=== PATIENT | male | born 1960 | race Caucasian/White ===

== ENCOUNTER 2025-06-22 10:38 | Outpatient (AMB) | payer MEDICARE, MEDICAID, SELFPAY ==
--- NOTE | 2025-06-22 10:43 | A.OFFVIS_ITS ---
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 The patient states that his symptoms have gotten worse over the last year. He did undergo left knee arthroscopic surgery by another provider approximately 2 years ago. He got fairly good relief from that procedure. He has tried Tylenol and ibuprofen which gave him minimal relief. Most of his pain is along the medial aspect of his right knee. 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 He has failed the last 6 weeks of conservative treatment. Allergies bee pollen (BEE STINGS) Allergy (Unknown, Verified 06/22/25 10:49) ANAPHYLAXIS Sulfa (Sulfonamide Antibiotics) Allergy (Unknown, Verified 06/22/25 10:49) Hives sulfamethoxazole (From BACTRIM) Allergy (Unknown, Verified 06/22/25 10:49) RASH trimethoprim (From BACTRIM) Allergy (Unknown, Verified 06/22/25 10:49) RASH Medication List - Last Reconciled 06/22/25 by Gilbert Traylor MD No Known Home Meds Physical Exam Vital Signs: BMI result Body Mass Index 27.6 Const Other: Well-nourished well-developed very friendly male awake alert and oriented x3 in no acute distress Extrem Other: Bilateral lower extremity examination shows good capillary refill, no skin lesions noted, normal sensation light touch Right knee examination shows a minimal effusion, mild crepitus with range of motion, tenderness along his medial joint line, positive Payal's test, no instability Assessment & Plan Assessment & Plan (1) Tear of medial meniscus of right knee: Code(s): S83.241A - Other tear of medial meniscus, current injury, right knee, initial encounter Category: Medical Plan Mr. Quintana presents with right knee pain and mechanical symptoms due to early degenerative joint disease as well as possible medial meniscus tearing. Thus, I will send the patient for an MRI of his right knee for further evaluation. I will see him back once the MRI is completed to discuss the findings and treatment options. He will continue with his activity modifications in the meantime. Feel free to call me at any time should questions regarding his orthopedic management arise. Thank you very much for asking me to see this very friendly gentleman. I spent 20 minutes in reviewing the patient's records and imaging studies, seeing the patient and documenting in the medical record. Orders: Orders MR knee RT wo con 06/23/25 S83.241A - Other tear of medial meniscus, current injury, right knee, initial encounter Coding Level of Care Code New Pt Level 3 (70142) Complex EM visit Add On G2211 Diagnoses Tear of medial meniscus of right knee S83.241A
[2025-06-22 10:49] VITALS: BMI 27.6
--- OUTSIDE RECORDS SUMMARY | 2025-06-22 14:09 | XMS_ITS | Clinical Summary ---
Author Organization [address] [facility] Address [address] [place] [address] Phone Care Team Providers Care Bicycle Inspector Name Role Phone Denise Bales MD Primary Care Provider [phone] Social History Tobacco Use Types Packs/Day Years Used Date Smoking Tobacco: Never Assessed Sex and Gender Information Value Date Recorded Sex Assigned at Not on file Legal Sex Male 7:12 AM EST Gender Identity Not on file Sexual Orientation Not on file Plan of Treatment Health Maintenance Due Date Last Done Comments Pneumococcal Vaccine: 50+ Years (1 of 1 - PCV) 2011 Zoster Vaccines (1 of 2) 2011 DTaP,Tdap,and Td Vaccines (2 - Td or Tdap) 08/02/2018 08/02/2008 Cholesterol Screening (Lipid Panel) 08/19/2024 Colorectal Cancer Screening: Colonoscopy 08/19/2024 HIV Screening 08/19/2024 Hepatitis C Screening 08/19/2024 Medicare Annual Wellness Visit 08/19/2024 Social Influencers of Health Screening 08/19/2024 Depression Screening 10/07/2024 COVID-19 Vaccine ( season) 2025 Influenza Vaccine (#1) 2025 6, 07/28/2014, 06/29/2013, Additional history exists RSV Immunization Adult Patients (1 - 1-dose 75+ series) 2036 HIB Vaccines Aged Out No longer eligi ble based on patient's age to complete this topic HPV Vaccines Aged Out No longer eligi ble based on patient's age to complete this topic Hepatitis A Vaccines Aged Out No long er eligible based on patient's age to complete this topic Hepatitis B Vaccines Aged Out No long er eligible based on patient's age to complete this topic IPV Vaccines Aged Out No longer eligi ble based on patient's age to complete this topic MMR Vaccines Aged Out No longer eligi ble based on patient's age to complete this topic Meningococcal ACWY Vaccine Aged Out N o longer eligible based on patient's age to complete this topic Meningococcal B Vaccine Aged Out No l onger eligible based on patient's age to complete this topic RSV Immunization Patients Under 20 months Aged Out No longer eligible based on patient's age to complete this topic Varicella Vaccines Aged Out No longer eligible based on patient's age to complete this topic Insurance MEDICARE [facility] Care Teams Bicycle Inspector Relationship Specialty Start Date End Date Denise Bales MD [address] [place] [id number] PCP - General Internal Medicine 01/03/15
--- OUTSIDE RECORDS SUMMARY | 2025-06-22 14:09 | XMS_ITS | Encounter Summary ---
Author Organization [employer] Address [address] [place] [address] Care Team Providers Care Detail Drafter Name Role Phone Denise Bales MD Primary Care Provider [phone] Encounter Details Date Type Department Care Team (Late st Contact Info) Description 08/18/2024 Lab Requisition [facility] - Main Lab [address] [facility] [place] [address] Jb Godfrey MD [address] [place] [phone] Elevated prostate specific antigen (PSA) Social History Tobacco Use Types Packs/Day Years Used Date Smoking Tobacco: Never Assessed Sex and Gender Information Value Date Recorded Sex Assigned at Not on file Legal Sex Male 7:12 AM EST Gender Identity Not on file Sexual Orientation Not on file documented as of this encounter Plan of Treatment Not on file documented as of this encounter Procedures Procedure Name Priority Date/Time Associated Diagnosis Comments AP OUTSIDE CONSULT Routine 08/18/2024 Elevated prostate specific antigen (PSA) documented in this encounter Results * Anatomic pathology outside consult (08/18/2024) Final Diagnosis A. Prostate, Left Middle [place]: - Benign prostatic tissue. B. Prostate, Left Lateral [place]: - Benign prostatic tissue. C. Prostate, Left Middle Middle: - Benign prostatic tissue. D. Prostate, Left Lateral Middle: - Benign prostatic tissue. E. Prostate, Left Middle Base: - Benign prostatic tissue. F. Prostate, Left Lateral Base: - Benign prostatic tissue. G. Prostate, Right Middle [place]: - Prostatic adenocarcinoma, grade group 1 (Torey score 3+3=6). - Tumor continuously involves 35% of 1 of 1 tissue core. H. Prostate, Right Lateral [place]: - Prostatic adenocarcinoma, grade group 1 (Torey score 3+3=6). - Tumor continuously involves 55% of 1 of 1 tissue core. I. Prostate, Right Middle Middle: - Prostatic adenocarcinoma, grade group 1 ([place] score 3+3=6). - Tumor continuously involves 45% of overall tissue, present in 1 of 2 tissue cores. J. Prostate, Right Lateral Middle: - Prostatic adenocarcinoma, grade group 1 ([place] score 3+3=6). - Tumor continuously involves 15% of overall tissue, present in 1 of 2 tissue cores. K. Prostate, Right Middle Base: - Benign prostatic tissue. L. Prostate, Right Lateral Base: - Prostatic adenocarcinoma, grade group 1 ([place] score 3+3=6). - Tumor discontinuously involves 70% of 1 of 1 tissue core. M. Prostate, Right Transition Zone Lesion: - Prostatic adenocarcinoma, grade group 1 (M[place] score 3+3=6). - Tumor continuously involves 20% of overall tissue, present in 2 of 3 tissue cores. 08/24/2024 3:13 PM [facility] Clinical Information Elevated PSA PSA: 28.6 (07/30/24) R97.20 [id number] 08/24/2024 3:13 PM [facility] Gross Description A. Prostate, Left Middle [place]: Received, properly labeled, are two H and E stained slides and two unstained slides. B. Prostate, Left Lateral [place]: Received, properly labeled, are two H and E stained slides and two unstained slides. C. Prostate, Left Middle Middle: Received, properly labeled, are two H and E stained slides and two unstained slides. D. Prostate, Left Lateral Middle: Received, properly labeled, are two H and E stained slides and two unstained slides. E. Prostate, Left Middle Base: Received, properly labeled, are two H and E stained slides and two unstained slides. F. Prostate, Left Lateral Base: Received, properly labeled, are two H and E stained slides and two unstained slides. G. Prostate, Right Middle [place]: Received, properly labeled, are two H and E stained slides and two unstained slides. H. Prostate, Right Lateral [place]: Received, properly labeled, are two H and E stained slides and two unstained slides. I. Prostate, Right Middle Middle: Received, properly labeled, are two H and E stained slides and two unstained slides. J. Prostate, Right Lateral Middle: Received, properly labeled, are two H and E stained slides and two unstained slides. K. Prostate, Right Middle Base: Received, properly labeled, are two H and E stained slides and two unstained slides. L. Prostate, Right Lateral Base: Received, properly labeled, are two H and E stained slides and two unstained slides. M. Prostate, Right Transition Zone Lesion: Received, properly labeled, are two H and E stained slides and two unstained slides. /al 08/24/2024 3:[address] [facility] Disclaimer Unless otherwise specified, all tissue is 10% NB formalin fixed and paraffin embedded. Technical pathology services provided by [facility] at [address] [place] [address] [address], [place] [address] (CLIA #[id number]/Sujey Reaves MD, Tight Barrel Inspector) 08/24/2024 3:[address] [facility] Tissue Prostate / Unknown 08/18/20242023 3:30 PM EST Tissue specimen (specimen) Prostate / Unknown 08/18/2024 08/18/2024 3: 30 PM EST Tissue specimen (specimen) Prostate / Unknown 08/18/2024 08/18/2024 3: 30 PM EST Tissue specimen (specimen) Prostate / Unknown 08/18/2024 08/18/2024 3: 30 PM EST Tissue specimen (specimen) Prostate / Unknown 08/18/2024 08/18/2024 3: 30 PM EST Tissue specimen (specimen) Prostate / Unknown 08/18/2024 08/18/2024 3: 30 PM EST Tissue specimen (specimen) Prostate / Unknown 08/18/2024 08/18/2024 3: 30 PM EST Tissue specimen (specimen) Prostate / Unknown 08/18/2024 08/18/2024 3: 30 PM EST Tissue specimen (specimen) Prostate / Unknown 08/18/2024 08/18/2024 3: 30 PM EST Tissue specimen (specimen) Prostate / Unknown 08/18/2024 08/18/2024 3: 30 PM EST Tissue specimen (specimen) Prostate / Unknown 08/18/2024 08/18/2024 3: 30 PM EST Tissue specimen (specimen) Prostate / Unknown 08/18/2024 08/18/2024 3: 30 PM EST Tissue specimen (specimen) Prostate / Unknown 08/18/2024 08/18/2024 3: 30 PM EST Jb Godfrey MD LAB PATHOLOGY ORDERABLES Final Result [facility] ([facility] [address] [place] [address], documented in this encounter Visit Diagnoses Diagnosis Elevated prostate specific antigen (PSA) documented in this encounter Care Teams Detail Drafter Relationship Specialty Start Date End Date Denise Bales MD [address] [place] [id number] PCP - General Internal Medicine 01/03/15 documented as of this encounter
== END 2025-06-22 11:10 | disposition home or self-care (01) ==
LOC: HO.HOS 10:39
PROVIDERS: Visit Provider Orthopaedic Surgery
DX: S83.241A Other tear of medial meniscus, current injury, right knee, initial encounter (principal)
CPT/HCPCS: 99203; G2211

== ENCOUNTER → 2025-06-22 10:38 | Outpatient (BNVA) | payer MEDICARE, MEDICAID, SELFPAY | PROVIDERS: Visit Provider Orthopaedic Surgery | DX: M25.561 Pain in right knee (principal); S83.241A Other tear of medial meniscus, current injury, right knee, initial encounter | CPT/HCPCS: 99202 ==

== ENCOUNTER 2025-07-05 16:06 | Outpatient (REF) | payer MEDICARE, MEDICAID, SELFPAY ==
--- NOTE | ~2025-07-05 | MR_ITS ---
EXAM: MRI LOWER EXTREMITY JOINT, KNEE, right TECHNIQUE: Multiplanar multisequence MR imaging performed through the right knee without contrast. INDICATION: S83.241A - Other tear of medial meniscus, current injury, right knee, in... PRIOR: None FINDINGS: Menisci: Lateral Meniscus: There is striation of the anterior meniscus near the root extending to the tibial surface that is not diagnostic of a tear. Medial Meniscus: The body is severely extruded from the joint line. It demonstrates increased signal. The posterior horn is frayed and irregular. ACL/PCL: ACL and PCL are intact. Extensor mechanism: There is a joint effusion. There is patchy edema in Hoffa's fat pad to the deep surface. MCL/LCL: MCL is bowed by extruded meniscal body. MCL is otherwise unremarkable. LCL complex is intact. Articular cartilage: Patellofemoral Compartment: Full thickness articular cartilage defect is noted in the median ridge and medial facet superiorly near junction with middle third patella. Trochlea demonstrates full-thickness fissure in the mid third region, trochlear groove, with adjacent reactive marrow signal. Lateral Compartment: There is full-thickness fissuring and delamination of a 9 mm segment of posterior tibial plateau articular cartilage near the intercondylar notch. Medial Compartment: There is a large area deep partial-thickness and full-thickness articular cartilage loss through the weightbearing regions of the medial femoral condyle with moderate to severe reactive marrow signal change. There is full-thickness articular cartilage loss along the medial joint line through the central and anterior portion of the joint surface measuring approximately 12 x 20 mm (transverse by AP). There is moderate reactive marrow signal in the adjacent tibia. Bones/Marrow: There is a subchondral insufficiency fracture involving the posterior weightbearing region of the medial femoral condyle near the joint line that measures 6 x 2 x 17 mm (transverse by CC by AP). There is moderate to severe marrow edema. Soft tissues: There is a multiloculated moderate-sized Valladares's cyst. MR/MR knee RT wo con IMPRESSION: There is a high-grade subchondral insufficiency fracture involving the medial femoral condyle. Severe degenerative change with cartilage loss most advanced along the medial femoral condyle. The medial meniscal body is completely extruded from the joint line. The body and posterior horn appears degenerated, frayed, and torn. There is a mildly complex joint effusion There is a multiloculated moderate-sized Valladares's cyst. Electronically signed by: Osmar Lind MD 07/05/2025 05:17 PM EDT RP
--- OUTSIDE RECORDS SUMMARY | 2025-07-05 18:10 | XMS_ITS | Clinical Summary ---
Author Organization [address] [facility] Address [address] [place] [address] Phone Care Team Providers Care Winter Intern Name Role Phone Denise Bales MD Primary Care Provider [phone] Social History Tobacco Use Types Packs/Day Years [...] age to complete this topic Insurance MEDICARE [facility] Care Teams Winter Intern Relationship Specialty Start Date End Date Denise Bales MD [address] [place] [phone] PCP - General Internal Medicine 01/03/15
--- OUTSIDE RECORDS SUMMARY | 2025-07-05 18:10 | XMS_ITS | Encounter Summary ---
Author Organization [facility] Address [address] [place] [address] Care Team Providers Care Pulp Tester Name Role Phone Denise Bales MD Primary Care Provider [phone] Encounter Details Date Type Department Care Team (Late st Contact Info) Description 08/18/[address] [facility] - Main Lab [address] [facility] [place] [address] Jb Godfrey MD [address] [place] [phone] Elevated prostate specific antigen (PSA) Social History [...] (08/18/2024) Final Diagnosis A. Prostate, Left Middle [place]: - Benign prostatic tissue. B. Prostate, Left Lateral [place]: - Benign prostatic tissue. C. Prostate, Left Middle Middle: - Benign prostatic tissue. D. Prostate, Left Lateral Middle: - Benign prostatic tissue. E. Prostate, Left Middle Base: - Benign prostatic tissue. F. Prostate, Left Lateral Base: - Benign prostatic tissue. G. Prostate, Right Middle [place]: - Prostatic adenocarcinoma, grade group 1 (Torey score 3+3=6). - Tumor continuously involves 35% of 1 of 1 tissue core. H. Prostate, Right Lateral [place]: - Prostatic adenocarcinoma, grade group 1 (Torey score 3+3=6). - Tumor continuously involves 55% of 1 of 1 tissue core. I. Prostate, Right Middle Middle: - Prostatic adenocarcinoma, grade group 1 ([place] score 3+3=6). - Tumor continuously involves 45% of overall tissue, present in 1 of 2 tissue cores. J. Prostate, Right Lateral Middle: - Prostatic adenocarcinoma, grade group 1 ([place] score 3+3=6). - Tumor continuously involves 15% of overall tissue, present in 1 of 2 tissue cores. K. Prostate, Right Middle Base: - Benign prostatic tissue. L. Prostate, Right Lateral Base: - Prostatic adenocarcinoma, grade group 1 ([place] score 3+3=6). - Tumor discontinuously involves 70% of 1 of 1 tissue core. M. Prostate, Right Transition Zone Lesion: - Prostatic adenocarcinoma, grade group 1 ([place] score 3+3=6). - Tumor continuously involves 20% of overall tissue, present in 2 of 3 tissue cores. 08/24/2024 3:13 PM [facility] Clinical Information Elevated PSA PSA: 28.6 (07/30/24) R97.20 [id number] 08/24/2024 3:13 PM [facility] Gross Description A. Prostate, Left Middle [place]: Received, properly labeled, are two H and E stained slides and two unstained slides. B. Prostate, Left Lateral [place]: Received, properly labeled, are two H and [...] two unstained slides. G. Prostate, Right Middle [place]: Received, properly labeled, are two H and E stained slides and two unstained slides. H. Prostate, Right Lateral [place]: Received, properly labeled, are two H and [...] unstained slides. /al 08/24/2024 3:13 PM EST [facility] Disclaimer Unless otherwise specified, all tissue is 10% NB formalin fixed and paraffin embedded. Technical pathology services provided by [facility] at [address] [place] [address] [address], [place] [address] (CLIA #[id number]/Sujey Reaves MD, Biometrics Technician) 08/24/2024 3:13 PM EST [facility] Tissue Prostate / Unknown 08/18/20242023 [...] specimen (specimen) Prostate / Unknown 08/18/2024 08/18/2024 3 :30 PM EST Tissue specimen (specimen) Prostate / Unknown 08/18/2024 08/18/2024 3: 30 PM EST Tissue specimen (specimen) Prostate / Unknown 08/18/2024 08/18/2024 3: 30 PM EST Jb Godfrey MD LAB PATHOLOGY ORDERABLES Final Result [facility] [address] [place] [address], documented in this encounter Visit Diagnoses Diagnosis Elevated prostate specific antigen (PSA) documented in this encounter Care Teams Pulp Tester Relationship Specialty Start Date End Date Denise Bales MD [address] [place] [phone] PCP - General Internal Medicine 01/03/15 documented as of this encounter
== END 2025-07-05 16:07 | disposition home or self-care (01) ==
LOC: HO.MRI 16:06
PROVIDERS: PCP Family Medicine; Visit Provider Orthopaedic Surgery
DX: S83.241A Other tear of medial meniscus, current injury, right knee, initial encounter (principal)
CPT/HCPCS: 73721

== ENCOUNTER → 2025-07-05 16:14 | Outpatient (BNV) | payer MEDICARE, MEDICAID, SELFPAY | PROVIDERS: PCP Family Medicine; Visit Provider Radiology Diagnostic Radiology | DX: S72.431A Displaced fracture of medial condyle of right femur, initial encounter for closed fracture (principal); M71.21 Synovial cyst of popliteal space [Baker], right knee; M94.261 Chondromalacia, right knee; M25.461 Effusion, right knee | CPT/HCPCS: 73721 ==

== ENCOUNTER 2025-07-06 12:38 | Outpatient (AMB) | payer MEDICARE, MEDICAID, SELFPAY ==
--- NOTE | 2025-07-06 12:42 | A.OFFVIS_ITS ---
Intake Visit Reasons: Right knee pain and giving way Intake Note: Luciano is a 64 year old male who presents today as a new patient for right knee pain. The patient states that his symptoms have gotten worse over the last year. He did undergo left knee arthroscopic surgery by another provider approximately 2 years ago. He got fairly good relief from that procedure. He has tried Tylenol and ibuprofen which gave him minimal relief. Most of his pain is along the medial aspect of his right knee. 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 He has failed the last 6 weeks of conservative treatment. Allergies bee pollen (BEE STINGS) Allergy (Unknown, Verified 06/22/25 10:49) ANAPHYLAXIS Sulfa (Sulfonamide Antibiotics) Allergy (Unknown, Verified 06/22/25 10:49) Hives sulfamethoxazole (From BACTRIM) Allergy (Unknown, Verified 06/22/25 10:49) RASH trimethoprim (From BACTRIM) Allergy (Unknown, Verified 06/22/25 10:49) RASH Medication List - Last Reconciled 07/06/25 by Gilbert Traylor MD No Known Home Meds Physical Exam Const Other: Well-nourished well-developed very friendly male awake alert and oriented x3 in no acute distress Extrem Other: Bilateral lower extremity examination shows good capillary refill, no skin lesions noted, normal sensation light touch Right knee examination shows a minimal effusion, mild crepitus with range of motion, tenderness along his medial joint line, positive Pyaal's test, no instability Results Reviewed Results Reviewed: Standing full weight-bearing x-rays of the patient's right knee show mild diffuse joint space narrowing, no acute bony abnormalities MRI of the patient's right knee shows mild diffuse degenerative changes as well as a tear of the medial meniscus Assessment & Plan Assessment & Plan (1) Tear of medial meniscus of right knee: Code(s): S83.241A - Other tear of medial meniscus, current injury, right knee, initial encounter Category: Medical Plan Mr. Quintana presents with progressively worsening right knee pain and mechanical symptoms due to a medial meniscus tear. I had a lengthy discussion with the patient regarding the treatment options. At this point he has failed continued non operative treatments. The risks and benefits of right knee arthroscopic surgery were discussed at length with the patient. The patient wishes to proceed with surgery. Surgery will involve right knee arthroscopic partial medial meniscectomy. He does understand that he may not get 100% relief of his symptoms depending on the severity of his degenerative changes. The patient will be scheduled for next available date. He will follow-up as instructed. Feel free to call me at any time should questions regarding his orthopedic management arise. I spent 21 minutes in reviewing the patient's records and imaging studies, seeing the patient and documenting in the medical record. Coding Level of Care Code Est Pt Level 3 (40136) Complex EM visit Add On G2211 Diagnoses Tear of medial meniscus of right knee S83.241A
--- OUTSIDE RECORDS SUMMARY | 2025-07-06 13:48 | XMS_ITS | Encounter Summary ---
Author Organization [employer] Address [address] [place] [address] Care Team Providers Care Needle Loom Tender Name Role Phone Denise Bales MD Primary Care Provider [phone] Encounter Details Date Type Department Care Team (Late st Contact Info) Description 08/18/2024 Lab Requisition [facility] - Main Lab [address] [facility] [place] [address] Jb Godfrey MD [address] [place] [id number] Elevated prostate specific antigen (PSA) Social History [...] (08/18/2024) Final Diagnosis A. Prostate, Left Middle [place]: - Benign prostatic tissue. B. Prostate, Left Lateral [place]: - Benign prostatic tissue. C. Prostate, Left Middle Middle: - Benign prostatic tissue. D. Prostate, Left Lateral Middle: - Benign prostatic tissue. E. Prostate, Left Middle Base: - Benign prostatic tissue. F. Prostate, Left Lateral Base: - Benign prostatic tissue. G. Prostate, Right Middle [place]: - Prostatic adenocarcinoma, grade group 1 ([place] score 3+3=6). - Tumor continuously involves 35% of 1 of 1 tissue core. H. Prostate, Right Lateral [place]: - Prostatic adenocarcinoma, grade group 1 ([place]y score 3+3=6). - Tumor continuously involves 55% of 1 of 1 tissue core. I. Prostate, Right Middle Middle: - Prostatic adenocarcinoma, grade group 1 ([place] score 3+3=6). - Tumor continuously involves 45% of overall tissue, present in 1 of 2 tissue cores. J. Prostate, Right Lateral Middle: - Prostatic adenocarcinoma, grade group 1 (Eh[place]berg score 3+3=6). - Tumor continuously involves 15% of overall tissue, present in 1 of 2 tissue cores. K. Prostate, Right Middle Base: - Benign prostatic tissue. L. Prostate, Right Lateral Base: - Prostatic adenocarcinoma, grade group 1 ([place] score 3+3=6). - Tumor discontinuously involves 70% of 1 of 1 tissue core. M. Prostate, Right Transition Zone Lesion: - Prostatic adenocarcinoma, grade group 1 (Ehrenberg score 3+3=6). - Tumor continuously involves 20% of overall tissue, present in 2 of 3 tissue cores. 08/24/2024 3:13 PM [facility] Clinical Information Elevated PSA PSA: 28.6 (07/30/24) R97.20 [id number] 08/24/2024 3:13 PM [facility] Gross Description A. Prostate, Left Middle [place]: Received, properly labeled, are two H and E stained slides and two unstained slides. B. Prostate, Left Lateral [place]: Received, properly labeled, are two H and [...] two unstained slides. G. Prostate, Right Middle [place]: Received, properly labeled, are two H and E stained slides and two unstained slides. H. Prostate, Right Lateral [place]: Received, properly labeled, are two H and [...] unstained slides. /al 08/24/2024 3:13 PM EST [facility] Disclaimer Unless otherwise specified, all tissue is 10% NB formalin fixed and paraffin embedded. Technical pathology services provided by [facility] at [address] [place] [address] [address], [place] [address] (CLIA #[id number]/Sujey Reaves MD, Mixer Blender) 08/24/2024 3:13 PM EST [facility] Tissue Prostate / Unknown 08/18/20242023 [...] Godfrey MD LAB PATHOLOGY ORDERABLES Final Result [facility] [address] [place] [address], documented in this encounter Visit Diagnoses Diagnosis Elevated prostate specific antigen (PSA) documented in this encounter Care Teams Needle Loom Tender Relationship Specialty Start Date End Date Denise Bales MD [address] [place] [phone] PCP - General Internal Medicine 01/03/15 documented as of this encounter
--- OUTSIDE RECORDS SUMMARY | 2025-07-06 13:48 | XMS_ITS | Clinical Summary ---
Author Organization [address] [facility] Address [address] [place] [address] Phone Care Team Providers Care Fresh Foods Clerk Name Role Phone Denise Bales MD Primary Care Provider [phone] Social History Tobacco Use Types Packs/Day Years [...] age to complete this topic Insurance MEDICARE [facility] Care Teams Fresh Foods Clerk Relationship Specialty Start Date End Date Denise Bales MD [address] [place] [id number] PCP - General Internal Medicine 01/03/15
== END 2025-07-06 13:00 | disposition home or self-care (01) ==
LOC: HO.HOS 12:38
PROVIDERS: PCP Family Medicine; Visit Provider Orthopaedic Surgery
DX: S83.241A Other tear of medial meniscus, current injury, right knee, initial encounter (principal)
CPT/HCPCS: 99214; G2211

== ENCOUNTER → 2025-07-06 12:38 | Outpatient (BNVA) | payer MEDICARE, MEDICAID, SELFPAY | PROVIDERS: PCP Family Medicine; Visit Provider Orthopaedic Surgery | DX: S83.241A Other tear of medial meniscus, current injury, right knee, initial encounter (principal) | CPT/HCPCS: 99212 ==

== ENCOUNTER → 2025-07-14 13:18 | Outpatient (BNV) | payer MEDICARE, MEDICAID, SELFPAY | PROVIDERS: PCP Family Medicine; Visit Provider Internal Medicine Cardiovascular Disease | DX: R94.31 Abnormal electrocardiogram [ECG] [EKG] (principal); Z01.810 Encounter for preprocedural cardiovascular examination | CPT/HCPCS: 93010 ==

== ENCOUNTER 2025-07-16 05:51 | Day surgery (SDC) | payer MEDICARE, MEDICAID, SELFPAY ==
--- OUTSIDE RECORDS SUMMARY | 2025-07-08 12:03 | XMS_ITS | Clinical Summary ---
Author Organization 299 [facility] Address [address] [place] [address] Phone Care Team Providers Care Duty Engineer Name Role Phone Denise Bales MD Primary Care Provider Social History Tobacco Use Types Packs/Day Years Used Date Smoking Tobacco: Never Assessed Sex and Gender Information Value Date Recorded Sex Assigned at Not on file Legal Sex Male 7:12 AM EST Gender Identity Not on file Sexual Orientation Not on file Plan of Treatment Health Maintenance Due Date Last Done Comments Colorectal Cancer Screening: Colonoscopy 1961 Pneumococcal Vaccine: 50+ Years (1 of 1 - PCV) 2011 Zoster Vaccines (1 of 2) 2011 DTaP,Tdap,and Td Vaccines (2 - Td or Tdap) 08/02/2018 08/02/2008 Cholesterol Screening (Lipid Panel) 08/19/2024 HIV Screening 08/19/2024 Hepatitis C Screening [...] age to complete this topic Insurance MEDICARE [facility] Care Teams Duty Engineer Relationship Specialty Start Date End Date Denise Bales MD [address] [place] [phone] PCP - General Internal Medicine 01/03/15
--- OUTSIDE RECORDS SUMMARY | 2025-07-08 12:03 | XMS_ITS | Encounter Summary ---
Author Organization [employer] Address [address] [place] [address] Care Team Providers Care Lockstitch Collar Setter Name Role Phone Denise Bales MD Primary Care Provider [phone] Encounter Details Date Type Department Care Team (Late st Contact Info) Description 08/18/2024 Lab Requisition [facility] - Main Lab 299 [facility] [place] [address] Jb Godfrey MD [address] [place] [phone] Elevated prostate specific antigen (PSA) Social History [...] (08/18/2024) Final Diagnosis A. Prostate, Left Middle [place]: - Benign prostatic tissue. B. Prostate, Left Lateral [place]: - Benign prostatic tissue. C. Prostate, Left Middle Middle: - Benign prostatic tissue. D. Prostate, Left Lateral Middle: - Benign prostatic tissue. E. Prostate, Left Middle Base: - Benign prostatic tissue. F. Prostate, Left Lateral Base: - Benign prostatic tissue. G. Prostate, Right Middle [place]: - Prostatic adenocarcinoma, grade group 1 ([place] score 3+3=6). - Tumor continuously involves 35% of 1 of 1 tissue core. H. Prostate, Right Lateral [place]: - Prostatic adenocarcinoma, grade group 1 ([place] score 3+3=6). - Tumor continuously involves 55% of 1 of 1 tissue core. I. Prostate, Right Middle Middle: - Prostatic adenocarcinoma, grade group 1 ([place] score 3+3=6). - Tumor continuously involves 45% of overall tissue, present in 1 of 2 tissue cores. J. Prostate, Right Lateral Middle: - Prostatic adenocarcinoma, grade group 1 ([place] score 3+3=6). - Tumor continuously involves 15% of overall tissue, present in 1 of 2 tissue cores. K. Prostate, Right Middle Base: - Benign prostatic tissue. L. Prostate, Right Lateral Base: - Prostatic adenocarcinoma, grade group 1 ([place] score 3+3=6). - Tumor discontinuously involves 70% of 1 of 1 tissue core. M. Prostate, Right Transition Zone Lesion: - Prostatic adenocarcinoma, grade group 1 (Torey score 3+3=6). - Tumor continuously involves 20% of overall tissue, present in 2 of 3 tissue cores. 08/24/2024 3:13 PM [facility] Clinical Information Elevated PSA PSA: 28.6 (07/30/24) R97.20 [id number] 08/24/2024 3:13 PM [facility] Gross Description A. Prostate, Left Middle [place]: Received, properly labeled, are two H and E stained slides and two unstained slides. B. Prostate, Left Lateral [place]: Received, properly labeled, are two H and [...] two unstained slides. G. Prostate, Right Middle [place]: Received, properly labeled, are two H and E stained slides and two unstained slides. H. Prostate, Right Lateral [place]: Received, properly labeled, are two H and [...] unstained slides. /al 08/24/2024 3:13 PM EST [facility] Disclaimer Unless otherwise specified, all tissue is 10% NB formalin fixed and paraffin embedded. Technical pathology services provided by [facility] at [address] [place] [address] [address], [place] [address] (CLIA #[id number]/Sujey Reaves MD, Absorption Plant Operator) 08/24/2024 3:13 PM EST [facility] Tissue Prostate / Unknown 08/18/20242023 [...] Godfrey MD LAB PATHOLOGY ORDERABLES Final Result [facility] ([facility]) [facility] [address] [place] [address], documented in this encounter Visit Diagnoses Diagnosis Elevated prostate specific antigen (PSA) documented in this encounter Care Teams Lockstitch Collar Setter Relationship Specialty Start Date End Date Denise Bales MD [address] [place] [phone] PCP - General Internal Medicine 01/03/15 documented as of this encounter
--- NOTE | 2025-07-14 | ECG_ITS ---
Test Reason : PREOP Blood Pressure : */* mmHG Vent. Rate : 70 BPM Atrial Rate : 70 BPM P-R Int : 182 ms QRS Dur : 90 ms QT Int : 376 ms P-R-T Axes : 39 -12 -4 degrees QTcB Int : 406 ms Normal sinus rhythm Inferior infarct , age undetermined Abnormal ECG No previous ECGs available Referred By: Kelly Vanessa Electronically Signed By: CYNDEE DERAS MD
[2025-07-14 12:40] VITALS: BP 110/76; PULSE 82; RESP 18; O2SAT 97; BMI 27.9
--- NOTE | 2025-07-14 12:50 | HO.ANESPROP2 ---
Documented by User: Kelly Vanessa NP 07/14/25 13:01 HPI - Anesthesia Eval Consult details Narrative: 64 yr old male for right Knee Arthroscopy, with partial medial menisectomy scheduled for 07/16/25, seen in PAT 07/14/25 No recent illness. No CP/SOB with low impact exercise including stationary bike 30 min daily; limited PE due to knee pain Last saw PCP at [facility] 05/2025 for orthopedic related complaints only; last labs done at [facility] in 2022 PMFSH Active Problems Active Problems: All Active Problems Tear of medial meniscus of right knee (Acute) Past Medical History Medical History RSV (respiratory syncytial virus infection) Skin cancer Elevated cholesterol Osteoarthritis BPH (benign prostatic hyperplasia) Tear of medial meniscus of knee Family History Family history of problems with anesthesia: No Surgical History Surgical History H/O colonoscopy Hx of arthroscopic knee surgery History of Problems with Anesthesia: No Social History Social History Are you a primary attending ambulatory care to a significant other at home: No Do you presently have visiting nurse or other home services: No Patient Tobacco Use Status: Former Tobacco user Tobacco use type: Cigarette Years Smoked: 2 Use of substances other than those prescribed or required for medical reasons: No Have you been hit, kicked, punched, or otherwise hurt by someone within the past year? If so, by whom?: No Spiritual Healthcare Practices: no Faith Healthcare Practices: no Cultural Healthcare Practices: no Are you DNR?: No Advance Directives: No (states S.O. is primary contact) Advance Directives on File: No Meds Allergies Allergy/AdvReac Type Severity Reaction Status Date / Time bee pollen (BEE STINGS) Allergy Severe ANAPHYLAXIS Verified 07/13/25 11:35 Sulfa (Sulfonamide Allergy Intermediate Hives Verified 07/13/25 11:35 Antibiotics) sulfamethoxazole (From Allergy Intermediate Hives Verified 07/14/25 12:38 BACTRIM) trimethoprim (From BACTRIM) Allergy Intermediate Hives Verified 07/14/25 12:38 Active Medications: Current Medications Cefazolin Sodium/Dextrose (Ancef) 2 gm in 50 mls @ 100 mls/hr IV PREOP ONE Stop: 07/16/25 06:19 Home Medications ?Medication ?Instructions ?Recorded ?Confirmed ?Last Taken ?Type albuterol sulfate 90 mcg/actuation 2 puff inhalation Q4-6H PRN 07/13/25 07/13/25 Unknown History aerosol inhaler Shortness Of Breath Or Wheezing atorvastatin 20 mg tablet 20 mg PO QAM 07/13/25 07/14/25 Unknown History tamsulosin 0.4 mg capsule 0.4 mg PO BEDTIME 07/13/25 07/13/25 Unknown History valacyclovir 1 gram tablet 1,000 mg PO DAILY PRN Cold Sores 07/13/25 07/13/25 Unknown History ibuprofen 800 mg tablet 800 mg PO TID PRN Pain 07/14/25 07/14/25 07/14/25 History Exam Height,Weight and Vital Signs: Height 6 ft 1 in Weight 96 kg Last Vital Signs Pulse 82 07/14/25 12:40 Resp 18 07/14/25 12:40 BP 110/76 07/14/25 12:40 Pulse Ox 97 07/14/25 12:40 O2 Del Method Room Air 07/14/25 12:40 Airway TM Dist: >3cm Neck ROM: Full Loose/Missing/Broken Teeth: No Heart: RRR Lungs: CTAB Assessment and Plan Final Anesthetic Review Family History of Problems with Anesthesia: No History of Problems with Anesthesia: No Documented by User: Bernarda Beck MD 07/16/25 07:53 [facility] Past Medical History Medical History RSV (respiratory syncytial virus infection) Skin cancer Elevated cholesterol Osteoarthritis BPH (benign prostatic hyperplasia) Tear of medial meniscus of knee Surgical History Surgical History H/O colonoscopy Hx of arthroscopic knee surgery History of Problems with Anesthesia: Unobtainable Social History Social History Are you a primary attending ambulatory care to a significant other at home: No Do you presently have visiting nurse or other home services: No Patient Tobacco Use Status: Former Tobacco user Tobacco use type: Cigarette Years Smoked: 2 Use of substances other than those prescribed or required for medical reasons: No Have you been hit, kicked, punched, or otherwise hurt by someone within the past year? If so, by whom?: No Spiritual Healthcare Practices: no Faith Healthcare Practices: no Cultural Healthcare Practices: no Are you DNR?: No Advance Directives: No (states S.O. is primary contact) Advance Directives on File: No Meds Allergies Allergy/AdvReac Type Severity Reaction Status Date / Time bee pollen (BEE STINGS) Allergy Severe ANAPHYLAXIS Verified 07/13/25 11:35 Sulfa (Sulfonamide Allergy Intermediate Hives Verified 07/13/25 11:35 Antibiotics) sulfamethoxazole (From Allergy Intermediate Hives Verified 07/14/25 12:38 BACTRIM) trimethoprim (From BACTRIM) Allergy Intermediate Hives Verified 07/14/25 12:38 Home Medications ?Medication ?Instructions ?Recorded ?Confirmed ?Last Taken ?Type albuterol sulfate 90 mcg/actuation 2 puff inhalation Q4-6H PRN 07/13/25 07/13/25 Unknown History aerosol inhaler Shortness Of Breath Or Wheezing atorvastatin 20 mg tablet 20 mg PO QAM 07/13/25 07/14/25 Unknown History tamsulosin 0.4 mg capsule 0.4 mg PO BEDTIME 07/13/25 07/13/25 Unknown History valacyclovir 1 gram tablet 1,000 mg PO DAILY PRN Cold Sores 07/13/25 07/13/25 Unknown History ibuprofen 800 mg tablet 800 mg PO TID PRN Pain 07/14/25 07/14/25 07/14/25 History Exam Airway Mallampati Class: II Assessment and Plan Assessment Anesthesia Assessment: Anesthesia Plan Discussed and Chart Reviewed Final Anesthetic Review History of Problems with Anesthesia: Unobtainable NPO: Yes ASA Class: II Final Preanesthetic Review: No Changes in Pt Med Stat, Meds/Allgs Chart Reviewed, Consent Obtained/Reviewed and Anes Risks/Benef Reviewed Patient Risk: Intermediate Procedure Risk: Low Anesthetic Plan Anesthetic Plan: GA Disposition: Standard PACU
[2025-07-14 14:46] LABS: Hematocrit 40.7 % (42.0-52.0); Hemoglobin 13.1 g/dl (14.0-18.0); Mean Corpuscular HGB Conc 32.2 g/dl (31.0-36.0); Mean Corpuscular Hemoglobin 30.2 pg (27.0-33.0); Mean Corpuscular Volume 93.8 fL (80.0-98.0); NRBC Abs Auto 0.000 X10*3/uL (0.0-0.012); NRBC Pct Auto 0.0 /100WBC (0.0-0.2); Platelet Count 235 X10*3/uL (160-400); Red Blood Count 4.34 X10*6/uL (4.60-5.80); White Blood Count 5.6 X10*3/uL (4.8-10.8)
[2025-07-14 15:21] LABS: Anion Gap 9 (12-20); Blood Urea Nitrogen 15 mg/dL (9-16); Calcium 9.3 mg/dL (8.4-10.2); Carbon Dioxide 30 mmol/L (22-29); Chloride 106 mmol/L (96-108); Creatinine Clr Calc Pharmacy 113.9; Estimated Glomerular Filt Rate > 60; Potassium 3.9 mmol/L (3.3-5.1); Sodium 141 mmol/L (135-145)
[2025-07-16] VITALS (11 sets, daily range): BP systolic 115–155; BP diastolic 74–96; PULSE 64–77; RESP 11–16; TEMP 36.1–36.6; O2SAT 95–100; BMI 28.0
[2025-07-16] MEDS: Lactated Ringers 1,000 ML 100 ML IVCONT (06:21)
--- NOTE | 2025-07-16 08:31 | P.BOP_ITS ---
Brief Operative Note Date of Service: 07/16/25 Pre-op diagnosis: Right knee medial meniscus tear, right knee degenerative joint disease Post-op diagnosis: same Procedure: Right knee arthroscopic partial medial meniscectomy, right knee arthroscopic chondroplasty of the undersurface of the patella as well as the medial femoral condyle Implants: none Surgeon: Gilbert Traylor MD Anesthesia: GLMA Was an Lining Cementer used for this Procedure?: No Estimated blood loss (mL): 10 Pathology: none sent Condition: stable Disposition: PACU
--- NOTE | 2025-07-16 08:31 | W.PM.OPN ---
Operative Note Operative Note Date of Service: 07/16/25 Narrative: After the patient was identified as Luciano Quintana and his right knee was initialed by myself they were brought to the operating room where general anesthesia was induced by the anesthesiologist in routine fashion. The patient was given 2 g of IV Ancef for infection prophylaxis. A formal time-out was completed. The patient's right lower extremity was prepped and draped in sterile fashion. Marcaine with epinephrine was injected into the planned incision sites as well as their right knee joint. A # 11 scalpel blade was used to make an anterolateral portal 1 cm proximal to the joint line and 1 cm lateral to the patellar tendon. Blunt trocar technique was used into the suprapatellar pouch with the knee in extension. Diagnostic arthroscopy showed multiple bands of thickened plica which would be excised at the end of the procedure. There were no loose bodies or abnormalities found in either the medial or lateral gutters. There were diffuse grades 1 and 2 degenerative changes of the undersurface of the patella as well as grades 1 and 2 degenerative changes of the trochlear groove. The patient's knee was flexed to 45 degrees and a valgus force was placed upon it. The medial compartment was entered. An anteromedial portal was made 1 cm proximal to the joint line and 1 cm medial to the patellar tendon. Probing of the medial meniscus showed a radial tear of the posterior horn. A partial medial meniscectomy was performed using the arthroscopic shaver. Following the partial meniscectomy the remainder of the meniscus tissue was stable. There were diffuse grades 3 and 4 degenerative changes of the medial femoral condyle as well as diffuse grades 3 and 4 degenerative changes of the medial tibial plateau. The articular surface of the medial femoral condyle was made smooth using the arthroscopic shaver. The articular surface of the medial tibial plateau was already smooth so no chondroplasty was indicated. The patient's knee was then placed into a neutral position. There was no injury to the anterior cruciate ligament. The patient's knee was then placed into the figure of 4 position and the lateral compartment was entered. There were minimal degenerative changes of the lateral femoral condyle and lateral tibial plateau. There was no evidence of lateral meniscus tearing. The patient's knee was once again brought into extension and the suprapatellar pouch was entered. The arthroscopic shaver and the ArthroCare Wand were used to excise the thickened bands of plica. The undersurface of the patella was then made smooth using the arthroscopic shaver. The articular surface of the trochlear groove was already smooth so no chondroplasty was indicated. The knee joint was irrigated and then drained. All arthroscopic instruments were removed. The 2 portals were closed with 3-0 nylon interrupted suture. The knee joint was injected with Marcaine. Dry sterile dressing and Geraldo bandages were placed over the patient's knee. The patient was awoken and extubated in the operating room. They were transferred to the recovery room in stable condition.
== END 2025-07-16 10:14 | disposition home or self-care (01) ==
PROVIDERS: Nurse Practitioner; PCP Family Medicine; Visit Provider Orthopaedic Surgery
PROC: (CPT 29870; principal; 2025-07-16 07:30)
DX: S83.241A Other tear of medial meniscus, current injury, right knee, initial encounter (principal); M25.561 Pain in right knee; M23.51 Chronic instability of knee, right knee; M67.51 Plica syndrome, right knee; M17.11 Unilateral primary osteoarthritis, right knee; X58.XXXA Exposure to other specified factors, initial encounter; Y93.9 Activity, unspecified; Y92.9 Unspecified place or not applicable; Y99.9 Unspecified external cause status; E78.00 Pure hypercholesterolemia, unspecified; N40.0 Benign prostatic hyperplasia without lower urinary tract symptoms; Z87.09 Personal history of other diseases of the respiratory system; Z85.828 Personal history of other malignant neoplasm of skin; Z79.1 Long term (current) use of non-steroidal anti-inflammatories (NSAID); Z79.899 Other long term (current) drug therapy; Z88.2 Allergy status to sulfonamides; Z98.890 Other specified postprocedural states; Z87.891 Personal history of nicotine dependence
CPT/HCPCS: 29881; 36415; 80048; 85027; 93005; J0131; J0165; J0690; J0696; J1100; J1885; J2003; J2250; J2405; J2704; J2795; J3010

== ENCOUNTER → 2025-07-16 05:51 | Outpatient (BNV) | payer MEDICARE, MEDICAID, SELFPAY | PROVIDERS: PCP Family Medicine; Visit Provider Orthopaedic Surgery | DX: S83.241A Other tear of medial meniscus, current injury, right knee, initial encounter (principal) | CPT/HCPCS: 29881 ==

== ENCOUNTER 2025-07-29 08:30 | Outpatient (AMB) | payer MEDICARE, MEDICAID, SELFPAY ==
--- NOTE | 2025-07-29 08:36 | MHC.OFFVIS ---
Intake Visit Reasons: PO-Rt Knee 07/16/25 Intake Note: Luciano is a 64 year old male who presents with complaints of mild discomfort in his right knee after undergoing right knee arthroscopic surgery on 07/16/2025. He continues with his home stretching program. He takes ibuprofen as needed for his discomfort. He denies any fevers or chills. Allergies bee pollen (BEE STINGS) Allergy (Severe, Verified 07/29/25 08:50) ANAPHYLAXIS Sulfa (Sulfonamide Antibiotics) Allergy (Intermediate, Verified 07/29/25 08:50) Hives sulfamethoxazole (From BACTRIM) Allergy (Intermediate, Verified 07/29/25 08:50) Hives trimethoprim (From BACTRIM) Allergy (Intermediate, Verified 07/29/25 08:50) Hives Medication List - Last Reviewed 07/29/25 by QUINN Carson acetaminophen 650 mg PO Q6H PRN albuterol sulfate 90 mcg/actuation 2 puffs inhalation Q4-6H PRN atorvastatin 20 mg PO QAM ibuprofen 800 mg PO TID PRN tamsulosin 0.4 mg PO BEDTIME valacyclovir 1,000 mg PO DAILY PRN PFSH Medical History RSV (respiratory syncytial virus infection) Skin cancer Elevated cholesterol Osteoarthritis BPH (benign prostatic hyperplasia) Tear of medial meniscus of knee Surgical History H/O colonoscopy Hx of arthroscopic knee surgery Social History Are you a primary district manager primary care sales to a significant other at home: No Do you presently have visiting nurse or other home services: No Patient Tobacco Use Status: Former Tobacco user Tobacco use type: Cigarette Years Smoked: 2 Physical Exam Const Other: Well-nourished well-developed very friendly male awake alert and oriented x3 in no acute distress Extrem Other: Right knee examination shows that the surgical incisions are healing well, no erythema, mild discomfort with range of motion, no instability Assessment & Plan Assessment & Plan (1) Right knee pain: Code(s): M25.561 - Pain in right knee Category: Medical Plan Mr. Quintana is doing well after undergoing right knee arthroscopic surgery on 07/16/2025. His sutures were removed and Steri-Strips placed over his incisions. He will gradually progress to activities as tolerated. He will contact me prior to his follow-up appointment in 2-3 months should any questions or concerns arise. Feel free to call me at any time should questions regarding his orthopedic management arise. Coding Level of Care Code Global (59238) Diagnoses Right knee pain M25.561
--- OUTSIDE RECORDS SUMMARY | 2025-07-29 08:55 | XMS_ITS | Clinical Summary ---
Author Organization 299 [facility] Address [address] [place] [address] Phone Care Team Providers Care Customer Support Specialist Name Role Phone Denise Bales MD Primary Care Provider [phone] Social History Tobacco Use Types Packs/Day Years [...] age to complete this topic Insurance MEDICARE [facility] Care Teams Customer Support Specialist Relationship Specialty Start Date End Date Denise Bales MD [address] [place] [phone] PCP - General Internal Medicine 01/03/15
--- OUTSIDE RECORDS SUMMARY | 2025-07-29 08:55 | XMS_ITS | Encounter Summary ---
Author Organization [employer] Address [address] [place] [address] Care Team Providers Care Film Tests Checker Name Role Phone Denise Bales MD Primary Care Provider [phone] Encounter Details Date Type Department Care Team (Late st Contact Info) Description 08/18/2024 Lab Requisition [facility] - Main Lab [address] [facility] [place] [address] Jb Godfrey MD [address] [place] [phone] Elevated prostate specific antigen (PSA) Social History [...] (08/18/2024) Final Diagnosis A. Prostate, Left Middle Pierce: - Benign prostatic tissue. B. Prostate, Left Lateral Pierce: - Benign prostatic tissue. C. Prostate, Left Middle Middle: - Benign prostatic tissue. D. Prostate, Left Lateral Middle: - Benign prostatic tissue. E. Prostate, Left Middle Base: - Benign prostatic tissue. F. Prostate, Left Lateral Base: - Benign prostatic tissue. G. Prostate, Right Middle Pierce: - Prostatic adenocarcinoma, grade group 1 (Torey score 3+3=6). - Tumor continuously involves 35% of 1 of 1 tissue core. H. Prostate, Right Lateral Pierce: - Prostatic adenocarcinoma, grade group 1 (Torey score 3+3=6). - Tumor continuously involves 55% of 1 of 1 tissue core. I. Prostate, Right Middle Middle: - Prostatic adenocarcinoma, grade group 1 (Torey score 3+3=6). - Tumor continuously involves 45% of overall tissue, present in 1 of 2 tissue cores. J. Prostate, Right Lateral Middle: - Prostatic adenocarcinoma, grade group 1 (Torey score 3+3=6). - Tumor continuously involves 15% of overall tissue, present in 1 of 2 tissue cores. K. Prostate, Right Middle Base: - Benign prostatic tissue. L. Prostate, Right Lateral Base: - Prostatic adenocarcinoma, grade group 1 (Torey score 3+3=6). - Tumor discontinuously involves 70% of 1 of 1 tissue core. M. Prostate, Right Transition Zone Lesion: - Prostatic adenocarcinoma, grade group 1 ([employer] score 3+3=6). - Tumor continuously involves 20% of overall tissue, present in 2 of 3 tissue cores. 08/24/2024 3:13 PM [facility] Clinical Information Elevated PSA PSA: 28.6 (07/30/24) R97.20 [id number] 08/24/2024 3:13 PM [facility] Gross Description A. Prostate, Left Middle Pierce: Received, properly labeled, are two H and E stained slides and two unstained slides. B. Prostate, Left Lateral Pierce: Received, properly labeled, are two H and [...] two unstained slides. G. Prostate, Right Middle Pierce: Received, properly labeled, are two H and E stained slides and two unstained slides. H. Prostate, Right Lateral Pierce: Received, properly labeled, are two H and [...] unstained slides. /al 08/24/2024 3:13 PM EST [facility] Disclaimer Unless otherwise specified, all tissue is 10% NB formalin fixed and paraffin embedded. Technical pathology services provided by [facility] at [address] [place] [address] [address], [place] [address] (CLIA #[id number]/Sujey Reaves MD, Manager [employer]) 08/24/2024 3:13 PM EST [facility] Tissue Prostate / Unknown 08/18/20242023 3:30 [...] Godfrey MD LAB PATHOLOGY ORDERABLES Final Result [facility] [address] [place] [address], documented in this encounter Visit Diagnoses Diagnosis Elevated prostate specific antigen (PSA) documented in this encounter Care Teams Film Tests Checker Relationship Specialty Start Date End Date Denies Bales MD [address] [place] [phone] PCP - General Internal Medicine 01/03/15 documented as of this encounter
== END 2025-07-29 08:55 | disposition home or self-care (01) ==
LOC: HO.HOS 08:31
PROVIDERS: PCP Family Medicine; Visit Provider Orthopaedic Surgery
DX: M25.561 Pain in right knee (principal)
CPT/HCPCS: 99024

== ENCOUNTER → 2025-07-29 08:30 | Outpatient (BNVA) | payer MEDICARE, MEDICAID, SELFPAY | PROVIDERS: PCP Family Medicine; Visit Provider Orthopaedic Surgery | DX: Z47.89 Encounter for other orthopedic aftercare (principal); M25.561 Pain in right knee; Z98.890 Other specified postprocedural states | CPT/HCPCS: 99212 ==